=== PATIENT | female | born 1945 | race Caucasian/White ===

== ENCOUNTER 2022-07-25 20:57 | Emergency (ER) | payer MEDICARE, OTHER, SELFPAY ==
[2022-07-25 21:10] VITALS: BP 131/75; PULSE 81; RESP 18; TEMP 36.4; O2SAT 97; BMI 22.7
== END 2022-07-25 22:17 | disposition left against medical advice (07) ==
PROVIDERS: Emergency Provider Emergency Medicine; Family Provider Internal Medicine; PCP Internal Medicine
DX: R10.9 Unspecified abdominal pain (principal)
CPT/HCPCS: 99281